=== PATIENT | male | born 1980 ===

== ENCOUNTER 2017-08-24 09:52 | Emergency (ER) | payer OTHER ==
--- NOTE | 2017-08-24 10:16 | ED PDOC ---
Lower Extremity Pain/Injury Time Seen by Provider: 08/24/17 10:16 Chief Complaint (Nursing): Lower Extremity Problem/Injury Chief Complaint (Provider): ankle pain History Per: Patient Additional Complaint(s): 36-year-old male with no past medical history presents to emergency department with pain and swelling to left ankle that started 3 days ago. Patient denies fall or trauma. He has history of surgery to same ankle about 8 years ago. He has not taken anything for pain relief. No fever or chills. Patient states the pain is better with rest, worse with walking and weight bearing. No associated numbness or tingling to affect area. Past Medical History Reviewed: Historical Data Vital Signs: Last Vital Signs Temp 98.1 F 08/24/17 10:08 Pulse 75 08/24/17 10:08 Resp 15 08/24/17 10:08 BP 128/82 08/24/17 10:08 Pulse Ox 97 08/24/17 10:08 - Medical History PMH: No Chronic Diseases - Surgical History Other surgeries: left ankle fracture repair - Family History Family History: States: No Known Family Hx - Living Arrangements Living Arrangements: With Family - Social History Current smoker - smoking cessation education provided: Yes Alcohol: None Drugs: Denies - Allergies Allergies/Adverse Reactions: Allergies Allergy/AdvReac Type Severity Reaction Status Date / Time No Known Allergies Allergy Verified 08/24/17 10:08 Wells Criteria for PE - Wells Criteria for Pulmonary Embolism Clinical Signs and Symptoms of DVT: No P.E is #1 Diagnosis, or Equally Likely: No Heart Rate >100: No Immobilization at least 3 days;Surgery previous 4 weeks: No Previous, objectively diagnosed PE or DVT: No Hemoptysis: No Malignancy w/treatment within 6 months, or palliative: No Total Score: 0 Review of Systems ROS Statement: Except As Marked, All Systems Reviewed And Found Negative Musculoskeletal: Positive for: Other (left ankle pain, denies fall or trauma) Physical Exam - Reviewed Nursing Documentation Reviewed: Yes Vital Signs Reviewed: Yes - Physical Exam Appears: Positive for: Well, Non-toxic, No Acute Distress Skin: Negative for: Rash Eye Exam: Positive for: Normal appearance Extremity: Positive for: Other (Tenderness to left lateral malleolus with mild swelling, no erythema or warmth, swelling or tenderness to left leg, normal distal sensation) Neurologic/Psych: Positive for: Alert, Oriented, Gait (steady with crutch for support) - ECG O2 Sat by Pulse Oximetry: 97 Pulse Ox Interpretation: Normal - Other Rad Left ankle x-ray X-Ray: Interpreted by Me, Viewed By Me X-Ray Interpretation: no fx, no dis, hardware grossly aligned Medical Decision Making Medical Decision Makin-year-old male with atraumatic pain to left ankle. Plan: X-ray left ankle Pain medicine declined. Patient aware of x-ray results. Aircast applied to left ankle. Advised NSAIDs for pain, podiatry clinic referral provided. Procedures - Splinting Location: left ankle Pre-Made Type: aircast Pre-Proc Neuro Vasc Exam: normal Post-Proc Neuro Vasc Exam: normal Disposition - Clinical Impression Clinical Impression: Ankle pain - Patient ED Disposition Is Patient to be Admitted: No Counseled Patient/Family Regarding: Studies Performed, Diagnosis, Need For Followup - Disposition Referrals: Podiatry Clinic [Outside] Disposition: Routine/Home Disposition Time: 11:15 Condition: STABLE Additional Instructions: Ice and rest the affected area. [id number] Tylenol or Advil for pain as needed. Follow-up with podiatry clinic for any persistent symptoms. Instructions: Ankle Sprain (ED), Swollen Ankle Joint (ED) Forms: [employer] (Thai), [facility] ED School/Work Excuse
[2017-08-24 10:24] VITALS: BP 128/82; PULSE 75; RESP 15; TEMP 98.1; O2SAT 97
--- NOTE | 2017-08-24 12:16 | RAD ---
PROCEDURE: Left Ankle Radiographs. HISTORY: pain for 3 days, denies trauma COMPARISON: None FINDINGS: BONES: No acute fractures. No evidence of orthopedic hardware failure. JOINTS: Normal. No osteoarthritis. Ankle mortise maintained. Talar dome intact SOFT TISSUES: Normal. OTHER FINDINGS: None. IMPRESSION: No acute findings related to/accounting for the clinical presentation. Concordant results with the preliminary interpretation rendered by the emergency department physician procedure.
== END 2017-08-24 11:43 | disposition home or self-care (01) ==
LOC: H.ER 09:52
DX: M25.572 Pain in left ankle and joints of left foot (principal)